=== PATIENT | male | born 1975 ===

== ENCOUNTER → 2018-11-29 02:56 | Emergency (ER) | payer SELFPAY ==
[2018-11-29 04:02] LABS: ABS Eosinophils 0.2 10^3/ul (0-0.6); ABS Lymphocytes 2.1 10^3/ul (1.0-4.8); ABS Monocytes 0.6 10^3/ul (0-0.8); ABS Neutrophils 3.1 10^3/ul (1.5-7.7); Eosinophil % 2.5 %; Hematocrit 43 % (42-52); Hemoglobin 14.9 g/dL (14.0-18.0); Lymphocyte % 35.3 %; Mean Corpuscular HGB Conc 34 g/dL (31-36); Mean Corpuscular Hemoglobin 34 pg (27-31); Mean Corpuscular Volume 99 fL (80-94); Mean Platelet Volume 7.5 fL (7.4-10.4); Nucleated Red Blood Cells % 0.1; Platelet Count 235 10^3/uL (150-450); Red Blood Count 4.39 10^6 /uL (4.18-5.48); Red Cell Distribution Width 13 % (10.5-15)
[2018-11-29 04:18] LABS: ALT 23 U/L (7-52); AST 26 U/L (13-39); Albumin 4.6 g/dL (3.2-5.2); Albumin/Globulin Ratio 1.8 (1-3); Alkaline Phosphatase 55 U/L (34-104); Anion Gap 8 mmol/L (2-11); BUN/Creatinine Ratio 16.5 (8-20); Blood Urea Nitrogen 13 mg/dL (6-24); CO2 Carbon Dioxide 25 mmol/L (22-32); Calcium 9.1 mg/dL (8.6-10.3); Chloride 109 mmol/L (101-111); EGFR African American 130.1 (>60); EGFR Non-African American 107.6 (>60); Globulin 2.6 g/dL (2-4); Glucose 110 mg/dL (70-100); Potassium 3.5 mmol/L (3.5-5.0); Sodium 142 mmol/L (135-145); Total Protein 7.2 g/dL (6.4-8.9)
[2018-11-29 04:49] LABS: Acetaminophen < 15 mcg/mL; Alcohol 256 mg/dL (<10); Salicylate < 2.50 mg/dL (<30)
[2018-11-29 05:19] LABS: TSH (Thyroid Stimulating Horm) 1.49 mcIU/mL (0.34-5.60)
--- NOTE | 2018-11-29 08:52 | ED ---
Substance Abuse/Use - HPI Summary HPI Summary: Patient is a 42-year-old male presenting to the ED with local intoxication. He was found stumbling around and fell down to the ground. Patient is alert and oriented on arrival. He states he did not hit his head and denies any injuries. He states he drank too much. He denies any drug use. He states he is an almost every day drinker. Denies any other symptoms or complaints. Denies fevers, sweats, chills or recent illness. He offers no complaints and denies any pain. Denies any SI or HI. - History Of Current Complaint Chief Complaint: EDSubstanceAbuse Stated Complaint: "ETOH" PER EMS Time Seen by Provider: 11/29/18 04:04 Hx Obtained From: Patient Onset/Duration of Drug/ETOH Abuse: Hours Overdose Characteristics: Oral Timing Of Abuse: Daily, Binge Use Severity Initially: Moderate Severity Currently: Moderate Aggravating Factor(s): Nothing Alleviating Factor(s): Nothing Associated Signs And Symptoms: Negative - Allergies/Home Medications Allergies/Adverse Reactions: Allergies Allergy/AdvReac Type Severity Reaction Status Date / Time No Known Allergies Allergy Verified 11/29/18 03:32 Home Medications: Home Medications NK [No Home Medications Reported] 11/29/18 [History Confirmed 11/29/18] PMH/Surg Hx/FS Hx/Imm Hx Previously Healthy: Yes - Immunization History Hx Pertussis Vaccination: No Immunizations Up to Date: Yes Infectious Disease History: No Infectious Disease History: Denies: Traveled Outside the [place] in Last 30 Days - Social History Occupation: Unemployed Lives: With Family Alcohol Use: Occasionally Hx Substance Use: No Substance Use Type: Reports: None Hx Tobacco Use: No Smoking Status (MU): Never Smoked Tobacco Review of Systems Constitutional: Negative Eyes: Negative Respiratory: Negative Gastrointestinal: Negative Negative: no symptoms reported, see HPI Skin: Negative Neurological: Negative All Other Systems Reviewed And Are Negative: Yes Physical Exam Triage Information Reviewed: Yes Vital Signs On Initial Exam: Initial Vitals Temp Pulse Resp BP Pulse Ox 98.4 F 79 18 111/72 96 11/29/18 03:00 11/29/18 03:00 11/29/18 03:00 11/29/18 03:00 11/29/18 03:00 Vital Signs Reviewed: Yes Appearance: Positive: Well-Appearing, Well-Nourished Skin: Positive: Warm, Skin Color Reflects Adequate Perfusion Head/Face: Positive: Normal Head/Face Inspection Eyes: Positive: Normal, Conjunctiva Clear Neck: Positive: Supple, No Lymphadenopathy Respiratory/Lung Sounds: Positive: Clear to Auscultation, Breath Sounds Present Cardiovascular: Positive: RRR, Pulses are Symmetrical in both Upper and Lower Extremities Musculoskeletal: Positive: Strength/ROM Intact Neurological: Positive: Slurred Speech Psychiatric: Positive: Affect/Mood Appropriate Diagnostics - Vital Signs Vital Signs Temp Pulse Resp BP Pulse Ox 11/29/18 07:38 74 114/62 95 11/29/18 07:08 74 100/51 93 11/29/18 07:00 72 93 11/29/18 06:38 75 96/54 94 11/29/18 06:08 73 100/56 94 11/29/18 06:00 70 94 11/29/18 05:38 78 99/51 86 11/29/18 05:08 84 103/56 93 11/29/18 05:00 77 95 11/29/18 04:38 74 76/44 94 11/29/18 04:08 74 83/51 96 11/29/18 04:00 76 93 11/29/18 03:51 82 106/58 96 11/29/18 03:00 98.4 F 79 18 111/72 96 - Laboratory Lab Results: Lab Results 11/29/18 11/29/18 Range/Units 03:53 03:53 WBC 6.0 (3.5-10.8) 10^3/uL RBC 4.39 (4.18-5.48) 10^6 /uL Hgb 14.9 (14.0-18.0) g/dL Hct 43 (42-52) % MCV 99 H (80-94) fL MCH 34 H (27-31) pg MCHC 34 (31-36) g/dL RDW 13 (10.5-15) % Plt Count 235 (150-450) 10^3/uL MPV 7.5 (7.4-10.4) fL Neut % (Auto) 51.7 % Lymph % (Auto) 35.3 % Saunders % (Auto) 10.0 % Eos % (Auto) 2.5 % Baso % (Auto) 0.5 % Absolute Neuts (auto) 3.1 (1.5-7.7) 10^3/ul Absolute Lymphs (auto) 2.1 (1.0-4.8) 10^3/ul Absolute Monos (auto) 0.6 (0-0.8) 10^3/ul Absolute Eos (auto) 0.2 (0-0.6) 10^3/ul Absolute Basos (auto) 0.0 (0-0.2) 10^3/ul Absolute Nucleated RBC 0.0 10^3/ul Nucleated RBC % 0.1 Sodium 142 (135-145) mmol/L Potassium 3.5 (3.5-5.0) mmol/L Chloride 109 (101-111) mmol/L Carbon Dioxide 25 (22-32) mmol/L Anion Gap 8 (2-11) mmol/L BUN 13 (6-24) mg/dL Creatinine 0.79 (0.67-1.17) mg/dL Est GFR ( Amer) 130.1 (>60) Est GFR (Non-Af Amer) 107.6 (>60) BUN/Creatinine Ratio 16.5 (8-20) Glucose 110 H (70-100) mg/dL Calcium 9.1 (8.6-10.3) mg/dL Total Bilirubin 0.70 (0.2-1.0) mg/dL AST 26 (13-39) U/L ALT 23 (7-52) U/L Alkaline Phosphatase 55 (34-104) U/L Total Protein 7.2 (6.4-8.9) g/dL Albumin 4.6 (3.2-5.2) g/dL Globulin 2.6 (2-4) g/dL Albumin/Globulin Ratio 1.8 (1-3) TSH 1.49 (0.34-5.60) mcIU/mL Salicylates < 2.50 (<30) mg/dL Acetaminophen < 15 mcg/mL Serum Alcohol 256 H (<10) mg/dL Result Diagrams: 11/29/18 03:53 11/29/18 03:53 Lab Statement: Any lab studies that have been ordered have been reviewed, and results considered in the medical decision making process. Course/Dx - Course Course Of Treatment: Patient is evaluated in the ED for all intoxication. His alcohol level is 252. On physical examination, there are no obvious signs of trauma to the head and denies hitting his head or LOC. Approximately 6 hours after arrival, patient is clinically sober. On entering the room to discharge the patient, the patient had eloped. Tech states she saw him leaving approximate 10 minutes prior to the discharge paperwork, but believed he was already discharged. He was ambulating well. - Diagnoses Differential Diagnosis/HQI/PQRI: Positive: Alcohol Abuse Provider Diagnoses: Alcohol intoxication Discharge - Sign-Out/Discharge Documenting (check all that apply): Patient Departure Patient Received Moderate/Deep Sedation with Procedure: No - Discharge Plan Condition: Good Disposition: ELOPEMENT - Billing Disposition and Condition Condition: GOOD Disposition: Elopement
== END | disposition home or self-care (01) ==
LOC: ED 02:56
DX: F10.129 Alcohol abuse with intoxication, unspecified (principal); Y90.8 Blood alcohol level of 240 mg/100 ml or more
CPT/HCPCS: 36415; 80053; 80320; 80329; 84443; 85025; 99283; G0480